=== PATIENT | female | born 1995 | race African-American/Black ===

== ENCOUNTER 2018-11-16 21:43 | Inpatient (IN) ==
[2018-11-16] MEDS ORDERED: LACTATED RINGERS 500 ML IV PRN (21:56)
[2018-11-16] MEDS ORDERED: ONDANSETRON 4 MG/2 ML VIAL IV PRN (21:56)
[2018-11-16 22:18] LABS: Basophils % 0.4 % (0.0-0.8); Eosinophils # 0.1 10*3/uL (0.0-0.87); Eosinophils % 0.9 % (0.00-10.9); Hematocrit 33.8 VOL% (35.7-47.0); Immature Granulocytes % 1.7 %; Immature Granulocytes Absolute 0.18 #; Lymphocytes # 1.6 10*3/uL (1.4-4.0); Lymphocytes % 15.1 % (21.3-54.2); Mean Corpuscular HGB Conc 32.5 GM/DL (32-36); Mean Corpuscular Volume 77.9 FL (87-102); Mean Platelet Volume 10.4 FL (9.6-12.0); Monocytes % 8.2 % (1.7-12.7); Neutrophils % 73.7 % (38.7-73.9); Platelet Count 227 T/CUMM (130-400); Red Blood Count 4.34 MC/CUMM (3.8-5.5); Red Cell Distribution Width 18.3 % (9.3-17.3); White Blood Count 10.8 T/CUMM (4-12)
[2018-11-16 22:36] LABS: Apearance,Urine CLOUDY (Clear); Bacteria,Urine Occasional /HPF (Few); Bilirubin,Urine Negative (Negative); Blood, Urine Negative (Negative); Glucose,Urine (UA) Negative (Negative); Ketones,Urine Negative (Negative); Mucus,Urine Occasional /LPF (Occasional); Nitrite,Urine Negative (Negative); Protein,Urine Negative; RBC,Urine 1 /HPF (0-4); Squamous Epithelial Cell,Urine Occasional /HPF (0-10); Urine Color Yellow (Yellow); Urine Specific Gravity 1.011 (1.001-1.035); Urine Urobilinogen < 2.0 EU/DL (0.2-1.0); WBC,Urine 2 /HPF (0-6)
[2018-11-16] MEDS: LACTATED RINGERS 1,000 ML IV SCH (23:50)
[2018-11-17] MEDS: LACTATED RINGERS 1,000 ML IV SCH ×3 (03:17→14:02)
[2018-11-17] MEDS ORDERED: TERBUTALINE 1 MG/1 ML VIAL SUBCUT ONE ×2 (06:20→13:38)
[2018-11-17] MEDS: BUTORPHANOL 2 MG/ML VIAL IV PRN ×2 (08:58→11:30)
[2018-11-17] MEDS ORDERED: OXYTOCIN/LR 20 UNIT/1,000 ML BAG IV SCH (09:30)
[2018-11-17] MEDS ORDERED: CITRIC ACID/SODIUM CITRATE 30 ML UDCUP PO ONE (12:00)
[2018-11-17] MEDS ORDERED: NALOXONE 0.4 MG/ML VIAL IV PRN (12:00)
[2018-11-17] MEDS ORDERED: PROMETHAZINE 25 MG/1 ML VIAL IM ONE (12:00)
[2018-11-17] MEDS ORDERED: ePHEDrine 50 MG/ML AMP IV PRN (12:00)
[2018-11-17] MEDS ORDERED: FAMOTIDINE 20 MG/2 ML VIAL IV ONE (12:00)
[2018-11-17] MEDS ORDERED: ONDANSETRON 4 MG/2 ML VIAL IV ONE (12:00)
[2018-11-17] MEDS ORDERED: diphenhydrAMINE 50 MG/1 ML VIAL IV PRN ×2 (12:00)
[2018-11-17] MEDS ORDERED: hydrOXYzine HCL 25 MG/1 ML VIAL IM PRN (12:00)
[2018-11-17] MEDS ORDERED: fentaNYL 2 MCG/ROPIV 0.2% EPID 100 ML EPIDURAL SCH (12:00)
[2018-11-17] MEDS ORDERED: LACTATED RINGERS 1,000 ML IV ONE (12:00)
[2018-11-17] MEDS ORDERED: LIDOCAINE 1% 50 ML VIAL ONE (14:48)
[2018-11-17] MEDS ORDERED: miSOPROStol 200 MCG TABLET ONE (14:48)
[2018-11-17] MEDS ORDERED: CARBOPROST TROMETHAMINE 250 MCG/ML AMP IM ONE (14:49)
[2018-11-17] MEDS ORDERED: METHYLERGONOVINE 0.2 MG/1 ML AMP ONE (14:49)
[2018-11-17 15:15] LABS: Apearance,Urine CLEAR (Clear); Bilirubin,Urine Negative (Negative); Blood, Urine Negative (Negative); Glucose,Urine (UA) Negative (Negative); Ketones,Urine Negative (Negative); Nitrite,Urine Negative (Negative); Protein,Urine Negative; Squamous Epithelial Cell,Urine Occasional /HPF (0-10); Urine Color Straw (Yellow); Urine Specific Gravity 1.008 (1.001-1.035); Urine Urobilinogen < 2.0 EU/DL (0.2-1.0); WBC,Urine 1 /HPF (0-6)
[2018-11-17] MEDS ORDERED: ONDANSETRON 4 MG/2 ML VIAL IV PRN (20:27)
[2018-11-17] MEDS ORDERED: HYDROCORTISONE 2.5% RECTAL CREAM 30 GM TUBE TOP PRN (20:27)
[2018-11-17] MEDS ORDERED: oxyCODONE/ACETAMINOPHEN 5-325 MG TABLET PO PRN (20:27)
[2018-11-17] MEDS ORDERED: ACETAMINOPHEN 325 MG TABLET PO PRN (20:27)
[2018-11-17] MEDS ORDERED: LANOLIN 50% CREAM 0.3 OZ TUBE TOP PRN (20:27)
[2018-11-17] MEDS ORDERED: BISACODYL 10 MG SUPP RECTAL PRN (20:27)
[2018-11-17] MEDS ORDERED: WITCH HAZEL PADS 100/JAR TOP PRN (20:27)
[2018-11-17] MEDS ORDERED: OXYTOCIN/LR 20 UNIT/1,000 ML BAG IV ONE (20:27)
[2018-11-17] MEDS ORDERED: RHO(D) IMMUNE GLOBULIN 300 MCG SYRINGE IM ONE (20:27)
[2018-11-17] MEDS ORDERED: DIPH/TET/ACEL PERT BOOSTER VACCINE 0.5 ML VIAL IM ONE (20:27)
[2018-11-17] MEDS ORDERED: BENZOCAINE 20%/MENTHOL 0.5% SPRAY 56 GM CAN TOP PRN (20:27)
[2018-11-17] MEDS ORDERED: MEASLES/MUMPS/RUBELLA VACCINE 0.5 ML VIAL SUBCUT ONE (20:27)
[2018-11-17 20:47] LABS: Cord Venous Blood HCO3 21.1 MMOL/L; Cord Venous Blood PCO2 48.6 MMHG; Cord Venous Blood PO2 25.9 MMHG
[2018-11-17] MEDS: IBUPROFEN 800 MG TABLET PO PRN (23:41)
[2018-11-18] MEDS: oxyCODONE/ACETAMINOPHEN 5-325 MG TABLET PO PRN (02:58)
[2018-11-18 05:13] LABS: Basophils % 0.2 % (0.0-0.8); Eosinophils % 0.3 % (0.00-10.9); Hemoglobin 9.9 GM/DL (12.0-16.0); Immature Granulocytes Absolute 0.13 #; Lymphocytes # 1.2 10*3/uL (1.4-4.0); Lymphocytes % 9.7 % (21.3-54.2); Mean Corpuscular Volume 77.7 FL (87-102); Mean Platelet Volume 12.1 FL (9.6-12.0); Monocytes % 11.2 % (1.7-12.7); Neutrophils % 77.6 % (38.7-73.9); Platelet Count 200 T/CUMM (130-400); Red Blood Count 3.86 MC/CUMM (3.8-5.5); Red Cell Distribution Width 18.2 % (9.3-17.3); White Blood Count 12.5 T/CUMM (4-12)
[2018-11-18] MEDS: DOCUSATE SODIUM 100 MG CAPSULE PO SCH ×3 (06:02→20:52)
[2018-11-18] MEDS: IBUPROFEN 800 MG TABLET PO PRN (19:04)
[2018-11-19] MEDS: oxyCODONE/ACETAMINOPHEN 5-325 MG TABLET PO PRN (03:25)
[2018-11-19 07:22] VITALS: BP 125/68
[2018-11-19] MEDS: DOCUSATE SODIUM 100 MG CAPSULE PO SCH (09:09)
== END 2018-11-19 11:40 | disposition home or self-care (01) | DRG 560 ==
LOC: N.LDOUT 21:43 → N.LD 21:44 → N.OB 11-17 23:30
PROVIDERS: ADMIT Specialist; ATTEND Specialist